=== PATIENT | male | born 1990 | race American Indian/Alaskan Native ===

== ENCOUNTER 2017-09-27 11:02 | Emergency (ER) | payer SELFPAY ==
[2017-09-27] MEDS ORDERED: Albuterol-Ipratrop 3 mg / 0.5 (3 ml) UD ONE ×2 (11:15→11:57)
[2017-09-27 11:19] VITALS: RESP 20
[2017-09-27] MEDS ORDERED: Albuterol-Ipratrop 3 mg / 0.5 (3 ml) UD IH STA (11:48)
--- NOTE | 2017-09-27 11:50 | C.PDOC ---
History Of Present Illness 26 yo male w/PMHx of asthma come in for evaluation of chest tightness, wheezing gradually developed for past few days. Pt admits, " visiting from [place] and forgot my pump at home". Otherwise, pt denies fever, chills, recent illness, sore throat, CP, SOB, dyspnea, abd. pain, N/V/D. Ambulate to ED for evaluation, not in any apparent distress. Time Seen by Provider: 09/27/17 11:27 Chief Complaint (Nursing): Shortness Of Breath History Per: Patient Past Medical History Reviewed: Historical Data, Nursing Documentation, Vital Signs Vital Signs: Last Vital Signs Temp 97.9 F 09/27/17 11:15 Pulse 62 09/27/17 11:15 Resp 20 09/27/17 11:21 BP 116/70 09/27/17 11:15 Pulse Ox 96 09/27/17 11:21 - Medical History PMH: Asthma Family History: States: No Known Family Hx - Social History Hx Alcohol Use: No Hx Substance Use: No - Immunization History Hx Tetanus Toxoid Vaccination: No Hx Influenza Vaccination: No Hx Pneumococcal Vaccination: No Review Of Systems Except As Marked, All Systems Reviewed And Found Negative. Constitutional: Negative for: Fever, Chills ENT: Negative for: Throat Pain Cardiovascular: Negative for: Chest Pain, Light Headedness Respiratory: Positive for: Wheezing. Negative for: Shortness of Breath, Pleuritic Pain, Sputum Gastrointestinal: Negative for: Nausea, Vomiting, Abdominal Pain Genitourinary: Negative for: Dysuria Musculoskeletal: Negative for: Neck Pain Skin: Negative for: Rash Neurological: Negative for: Weakness, Numbness, Altered Mental Status, Headache , Dizziness Physical Exam - Physical Exam Appears: Well, Non-toxic, No Acute Distress Skin: Normal Color, Warm, Dry, No Rash Head: Normacephalic Eye(s): bilateral: PERRL Ear(s): Bilateral: Normal Nose: No Flaring, No Discharge Oral Mucosa: Moist Throat: No Drooling Neck: Trachea Midline, Supple Cardiovascular: Rhythm Regular Respiratory: No Decreased Breath Sounds, No Accessory Muscle Use, No Rales, No Rhonchi, Wheezing (scattered expiratory bibasilar wheezing ) Gastrointestinal/Abdominal: Soft, No Tenderness Back: No CVA Tenderness Extremity: Normal ROM, No Pedal Edema, No Deformity Neurological/Psych: Oriented x3, Normal Speech ED Course And Treatment O2 Sat by Pulse Oximetry: 96 Pulse Ox Interpretation: Normal Progress Note: On re-eval, pt is afebrile, hemodynamicaly stable. PulseOx 96% RA. ENT: no acute findings. neck: Supple, (-) meningea sigg. Lungs: mod improvement in wheeizng B/L, BS equla B/L. Neurologicaly intact. Pt advised. ref. to f/u with PMD in 2-3 days for re-eval. return if any new changes. Disposition Counseled Patient/Family Regarding: Diagnosis, Need For Followup, Rx Given - Disposition Referrals: [facility] at [facility] [Outside] Disposition: HOME/ ROUTINE Disposition Time: 11:49 Condition: STABLE Additional Instructions: ENCOURAGE FLUIDS TAKE MEDICATION PRESCRIBED FOLLOW UP WITH PMD IN 2-3 DAYS FOR RE-EVALUATION. RETURN TO ed IF NAY WORSENING OR NEW CHANGES. Prescriptions: Albuterol HFA [Ventolin HFA 90 mcg/actuation (8 g)] 1 puff IH Q6 #1 inhaler Instructions: Asthma (ED) - Clinical Impression Clinical Impression: Asthma
[2017-09-27] MEDS ORDERED: Albuterol-Ipratrop 3 mg / 0.5 (3 ml) UD INH STA (11:54)
[2017-09-27 12:14] VITALS: BP 116/72; PULSE 92; TEMP 97.7; O2SAT 98
== END 2017-09-27 12:14 | disposition home or self-care (01) ==
LOC: C.ER 11:02
DX: J45.909 Unspecified asthma, uncomplicated (principal)